=== PATIENT | female | born 1980 | race Caucasian/White ===

== ENCOUNTER 2017-04-17 14:55 | Emergency (ER) | payer BC, MEDICAID, SELFPAY ==
[2017-04-17 15:00] VITALS: BP 146/104; PULSE 92; RESP 18; TEMP 37.7; O2SAT 98; BMI 21.0
[2017-04-17 15:55] VITALS: BP 132/81; PULSE 92; RESP 20; TEMP 36.9; O2SAT 100; BMI 21.0
--- NOTE | 2017-04-17 17:01 | HMH.EDUTC ---
[facility] [place] Disposition Clinical Impression: Torticollis Disposition: Home, Self-Care Condition on Discharge: Good Instructions: DI for Torticollis Prescriptions: Cyclobenzaprine HCl [Cyclobenzaprine 10mg Tab] 10 mg PO TID #20 tab SUMAtriptan succinate [Imitrex] 50 mg PO DAILYP PRN 7 Days #7 tab PRN Reason: Headache Promethazine HCl [Phenergan 12.5mg tablet] 12.5 mg PO Q6HP PRN #5 tab PRN Reason: Nausea Time of Disposition: 17:00 Medical Decision Making - Medical Records Medical records reviewed: Yes: I reviewed the patient's medical records. Vital Signs: 04/17/17 15:00 04/17/17 15:55 Temperature 100 F H 98.5 F Temperature Source Temporal Artery Scan Temporal Artery Scan Pulse Rate [Left Brachial] 92 H 92 H Respiratory Rate 18 20 Blood Pressure [Left Arm] 146/104 132/81 Blood Pressure Mean [Left Arm] 118 98 Blood Pressure Source [Left Arm] Automatic Cuff Manual Cuff/ Doppler Blood Pressure Position [Left Arm] Sitting Sitting 02 Sat by Pulse Oximetry 98 100 Oxygen Delivery Method Room Air Room Air Orders (Tests/Meds): ED MEDICATIONS Discontinued Medications Generic Name Dose Route Start Last Admin Trade Name Freq PRN Reason Stop Dose Admin Ketorolac Tromethamine 60 mg 04/17/17 16:42 Toradol 60mg/2ml Vial IM 04/17/17 16:43 ONCE ONE Promethazine HCl 12.5 mg 04/17/17 16:42 Phenergan 25mg/Ml 1ml Vial IM 04/17/17 16:43 ONCE ONE Sodium Chloride 25 ml 04/17/17 16:42 Sod Chlor 0.9% 25ml Bag IV 04/17/17 16:43 ONCE ONE - Jono Inquiry Pt receiving controlled substance: No Medical Decision Making Narrative: Offered patient injections but she got upset due to the long wait and requested we just give her a script so she could go. Her daughter was driving. Advised to return if pain persisted or worsened or if symptoms changed. [facility] [place] HPI - General Stated complaint: pain in back of head no ao Time Seen by Provider: 04/17/17 16:10 Mode of Arrival: Ambulatory Source of Information: Patient Limitations: No Limitations Description of Symptoms (Recalled from Triage Doc. by RN): MIGRAINE SINCE LAST NIGHT HEENT Symptoms (Recalled from RN notes): Yes (MIGRAINE) Resp Symptoms (Recalled from RN notes): No Skin Symptoms (Recalled from RN notes): No MS Symptoms (Recalled from RN notes): No Functional Status (Recalled from RN notes): N/A - History of Present Illness Provider Complaint: Patient states has a history of migraines. Had acute onset of pain in the back of her head. Has taken her Topamax, Fioricet without relief. The pain is on the bone in the back of her head. It is quite severe. Hurts to turn her head to the right. Not to the left. Some nausea. No vomiting. No fever. No rash. No photophobia. Onset (ago): day(s) (1) Location: head Radiation: non-radiation Severity: moderate Quality: stabbing Consistency: constant Relieving factors: none Exacerbating factors: none Associated symptoms: denies other symptoms Treatments prior to arrival: other (Topamax, Fioricet) - Related Data Previous Rx's Medication Instructions Recorded Cyclobenzaprine HCl 10 mg PO TID #20 tab 04/17/17 [Cyclobenzaprine 10mg Tab] Promethazine HCl [Phenergan 12.5mg 12.5 mg PO Q6HP PRN #5 tab 04/17/17 tablet] SUMAtriptan succinate [Imitrex] 50 mg PO DAILYP PRN 7 Days #7 tab 04/17/17 Allergies Allergy/AdvReac Type Severity Reaction Status Date / Time No Known Allergies Allergy Unverified 02/23/17 14:17 - Worker's Comp Is this a Worker's Comp case?: No H History I have reviewed the patient's past medical history: Yes Medical History: Denies:: Diabetes Mellitus Type 1, Diabetes Mellitus Type 2 Amputation: No Fractures: No - *Social History Smoking Status: Current every day smoker Tobacco Type: cigarettes Alcohol Intake: never - Psychiatric History Expresses thoughts of harming self/others: None Suicide Plan Description: No Plan ROS Obtai
--- NOTE | 2017-04-17 17:05 | ED_ITS ---
[facility] [place] Clinical Impression: Torticollis Disposition: Home, Self-Care Condition on Discharge: Good Instructions: DI for Torticollis Prescriptions: Cyclobenzaprine HCl [Cyclobenzaprine 10mg Tab] 10 mg PO TID #20 tab SUMAtriptan succinate [Imitrex] 50 mg PO DAILYP PRN 7 Days #7 tab PRN Reason: Headache Promethazine HCl [Phenergan 12.5mg tablet] 12.5 mg PO Q6HP PRN #5 tab PRN Reason: Nausea Time of Disposition: 17:00 Medical Decision Making - Medical Records Medical records reviewed: Yes: I reviewed the patient's medical records. Vital Signs: 04/17/17 15:00 04/17/17 15:55 Temperature 100 F H 98.5 F Temperature Source Temporal Artery Scan Temporal Artery Scan Pulse Rate [Left Brachial] 92 H 92 H Respiratory Rate 18 20 Blood Pressure [Left Arm] 146/104 132/81 Blood Pressure Mean [Left Arm] 118 98 Blood Pressure Source [Left Arm] Automatic Cuff Manual Cuff/ Doppler Blood Pressure Position [Left Arm] Sitting Sitting 02 Sat by Pulse Oximetry 98 100 Oxygen Delivery Method Room Air Room Air Orders (Tests/Meds): ED MEDICATIONS Discontinued Medications Generic Name Dose Route Start Last Admin Trade Name Freq PRN Reason Stop Dose Admin Ketorolac Tromethamine 60 mg 04/17/17 16:42 Toradol 60mg/2ml Vial IM 04/17/17 16:43 ONCE ONE Promethazine HCl 12.5 mg 04/17/17 16:42 Phenergan 25mg/Ml 1ml Vial IM 04/17/17 16:43 ONCE ONE Sodium Chloride 25 ml 04/17/17 16:42 Sod Chlor 0.9% 25ml Bag IV 04/17/17 16:43 ONCE ONE - Jono Inquiry Pt receiving controlled substance: No Medical Decision Making Narrative: Offered patient injections but she got upset due to the long wait and requested we just give her a script so she could go. Her daughter was driving. Advised to return if pain persisted or worsened or if symptoms changed. [facility] [place] HPI - General Stated complaint: pain in back of head no ao Time Seen by Provider: 04/17/17 16:10 Mode of Arrival: Ambulatory Source of Information: Patient Limitations: No Limitations Description of Symptoms (Recalled from Triage Doc. by RN): MIGRAINE SINCE LAST NIGHT HEENT Symptoms (Recalled from RN notes): Yes (MIGRAINE) Resp Symptoms (Recalled from RN notes): No Skin Symptoms (Recalled from RN notes): No MS Symptoms (Recalled from RN notes): No Functional Status (Recalled from RN notes): N/A - History of Present Illness Provider Complaint: Patient states has a history of migraines. Had acute onset of pain in the back of her head. Has taken her Topamax, Fioricet without relief. The pain is on the bone in the back of her head. It is quite severe. Hurts to turn her head to the right. Not to the left. Some nausea. No vomiting. No fever. No rash. No photophobia. Onset (ago): day(s) (1) Location: head Radiation: non-radiation Severity: moderate Quality: stabbing Consistency: constant Relieving factors: none Exacerbating factors: none Associated symptoms: denies other symptoms Treatments prior to arrival: other (Topamax, Fioricet) - Related Data Previous Rx's Medication Instructions Recorded Cyclobenzaprine HCl 10 mg PO TID #20 tab 04/17/17 [Cyclobenzaprine 10mg Tab] Promethazine HCl [Phenergan 12.5mg 12.5 mg PO Q6HP PRN #5 tab 04/17/17 tablet] SUMAtri
--- NOTE | 2017-04-17 17:10 | PC.NURSE ---
NURSE WAS GOING IN TO ADMINISTER INJECTIONS TO PT AND SHE REFUSED. SHE STATED THAT SHE HAD WAITED TO LONG AND WANTED HER SCRIPTS GIVEN TO HER AND FOR US TO LET HER LEAVE. PA NOTIFIED AND PT DISCHARGED.
[2017-04-17 17:14] VITALS: BP 132/81; PULSE 92; RESP 20; TEMP 36.9; O2SAT 100
== END 2017-04-17 17:16 | disposition home or self-care (01) ==
PROVIDERS: Emergency Provider Physician Assistant
DX: M43.6 Torticollis (principal); G43.909 Migraine, unspecified, not intractable, without status migrainosus; Z79.899 Other long term (current) drug therapy; F17.210 Nicotine dependence, cigarettes, uncomplicated
CPT/HCPCS: 99202